=== PATIENT | male | born 1945 | race Caucasian/White ===

== ENCOUNTER 2024-01-28 22:37 | Emergency (ER) | payer MEDICARE, OTHER ==
[2024-01-28 22:45] VITALS: TEMP 97.9
[2024-01-28 23:05] LABS: Appearance,Urine Bloody (Clear); Color,Urine Red
[2024-01-28 23:18] LABS: RBC,Urine >182 /hpf (0-5)
--- NOTE | 2024-01-28 23:48 | ED ---
Male Urogenital HPI - General Chief complaint: Urogenital Stated complaint: Catheter Malfunction Time Seen by Provider: 01/28/24 22:40 Source: patient Mode of arrival: EMS Limitations: no limitations - History of Present Illness Initial comments: 78-year-old male presents to the emergency department with hematuria. Patient states that he has had the catheter in for an extended period of time. He did not realize that the catheter had to be changed out. He did have a catheter changed on . He has not had any issues until today. He took a nap at home and when he woke up he noticed that there was blood in the catheter bag. He is currently on antibiotics. He denies any flank or suprapubic pain. No fevers. Patient takes Plavix. No other alleviating, precipitating or modifying factors - Related Data Previous Rx's Medication Instructions Recorded Ciprofloxacin HCl [Cipro] 500 mg PO Q12HR #14 tablet 01/29/24 Allergies Allergy/AdvReac Type Severity Reaction Status Date / Time No Known Allergies Allergy Verified 01/29/24 01:35 Review of Systems ROS Statement: Those systems with pertinent positive or pertinent negative responses have been documented in the HPI. ROS Other: All systems not noted in ROS Statement are negative. Past Medical History Past Medical History: Heart Failure, CVA/TIA, Hyperlipidemia, Hypertension Past Surgical History: Heart Catheterization With Stent, Hernia Repair Past Psychological History: Anxiety Smoking Status: Never smoker Past Alcohol Use History: None Reported Past Drug Use History: None Reported General Exam Limitations: no limitations General appearance: alert, in no apparent distress Head exam: Present: atraumatic, normocephalic, normal inspection Eye exam: Present: normal appearance, PERRL, EOMI. Absent: scleral icterus, conjunctival injection, periorbital swelling ENT exam: Present: normal exam, mucous membranes moist Neck exam: Present: normal inspection. Absent: tenderness, meningismus, lymphadenopathy Respiratory exam: Present: normal lung sounds bilaterally. Absent: respiratory distress, wheezes, rales, rhonchi, stridor Cardiovascular Exam: Present: regular rate, normal rhythm, normal heart sounds. Absent: systolic murmur, diastolic murmur, rubs, gallop, clicks GI/Abdominal exam: Present: soft, normal bowel sounds. Absent: distended, tenderness, guarding, rebound, rigid exam: Present: other (Catheter back in place with bloody urine) Extremities exam: Present: normal inspection, full ROM, normal capillary refill. Absent: tenderness, pedal edema, joint swelling, calf tenderness Back exam: Present: normal inspection Neurological exam: Present: alert, oriented X3, CN II-XII intact Psychiatric exam: Present: normal affect, normal mood Skin exam: Present: warm, dry, intact, normal color. Absent: rash Course Vital Signs 01/28/24 01/29/24 22:38 01:01 Temperature 97.9 F Pulse Rate 92 88 Respiratory 18 16 Rate Blood Pressure 161/80 155/79 O2 Sat by Pulse 97 97 Oximetry Medical Decision Making - Medical Decision Making Was pt. sent in by a medical professional or institution (, [facility], CARTRIDGE LOADER, urgent care, hospital, or alf...) When possible be specific @ -No Did you speak to anyone other than the patient for history (EMS, parent, family, police, friend...)? What history was obtained from this source @ -Spoke with EMS for history Did you review nursing and triage notes (agree or disagree)? Why? @ -I reviewed and agree with nursing and triage notes Were old charts reviewed (outside hosp., previous admission, EMS record, old EKG, old radiological studies, urgent care reports/EKG's, alf records)? Report findings @ -No old charts were reviewed Differential Diagnosis (chest pain, altered mental status, abdominal pain women, abdominal pain men, vaginal bleeding, weakness, fever, dyspnea, syncope, headache, dizziness, GI bleed, back pain, seizure, CVA, palpatations, mental health, musculoskeletal)? @ -Acute UTI, acute hematuria, ureterolithiasis, Sarkar trauma EKG interpreted by me (3pts min.). @ -Not done X-rays interpreted by me (1pt min.). @ -None done CT interpreted by me (1pt min.). @ -None done U/S interpreted by me (1pt. min.). @ -None done What testing was considered but not performed or refused? (CT, X-rays, U/S, labs)? Why? @ -None What meds were considered but not given or refused? Why? @ -None Did you discuss the management of the patient with other professionals (professionals i.e. , MALVIN, CARTRIDGE LOADER, lab, RT, psych nurse, nephrology social worker, professor of english, teacher, corporation officer, bottle caser)? Give summary @ -No Was smoking cessation discussed for >3mins.? @ -No Was critical care preformed (if so, how long)? @ -No Were there social determinants of health that impacted care today? How? (Homelessness, low income, unemployed, alcoholism, drug addiction, transportation, low edu. Level, literacy, decrease access to med. care, [facility], rehab)? @ -No Was there de-escalation of care discussed even if they declined (Discuss DNR or withdrawal of care, Hospice)? DNR status @ -No What co-morbidities impacted this encounter? (DM, HTN, Smoking, COPD, CAD, Cancer, CVA, ARF, Chemo, Hep., AIDS, mental health diagnosis, sleep apnea, morbid obesity)? @ -Urinary retention Was patient admitted / discharged? Hospital course, mention meds given and route, prescriptions, significant lab abnormalities, going to OR and other pertinent info. @ -Upon arrival patient seen and evaluated in room 31. Thorough history and physical exam was performed. We do send a urine sample which demonstrates gross blood. No bacteria is identified however I will change the patient's antibiotic in the event that due to the significant amount of blood, the bacteria is not being identified. Patient's Sarkar bag is flushed to a light pink color. He will be discharged home at this time. Instructed to return should his urination become darker in coloration or he clots off. Patient understood this. Given written and verbal discharge instructions discharged home in stable condition Undiagnosed new problem with uncertain prognosis? @ -No Drug Therapy requiring intensive monitoring for toxicity (Heparin, Nitro, Insulin, Cardizem)? @ -No Were any procedures done? @ -No Diagnosis/symptom? @ -Acute hematuria, history of chronic Sarkar Acute, or Chronic, or Acute on Chronic? @Acute Uncomplicated (without systemic symptoms) or Complicated (systemic symptoms)? @ -Complicated Side effects of treatment? @ -No Exacerbation, Progression, or Severe Exacerbation? @ -No Poses a threat to life or bodily function? How? (Chest pain, [place], [place], pneumonia, PE, COPD, DKA, ARF, appy, cholecystitis, CVA, Diverticulitis, Homicidal, Suicidal, threat to staff... and all critical care pts) @ -No - Lab Data Lab Results 06/09/24 Range/Units 22:53 Urine Color Red Urine Appearance Bloody (Clear) Urine RBC >182 H (0-5) /hpf Disposition Clinical Impression: Hematuria Disposition: HOME SELF-CARE Condition: Stable Instructions (If sedation given, give patient instructions): Hematuria (ED) Additional Instructions: Call up to the ER with the list of your medications. I will change your ant ibiotic. If the bleeding gets darker again and the catheter clots off, you will have to return to the emergency department to get flushed again. Follow-up with your urologist as they will need to do a scope of your bladder Prescriptions: Ciprofloxacin HCl [Cipro] 500 mg PO Q12HR #14 tablet Is patient prescribed a controlled substance at d/c from ED?: No Referrals: None,Stated [Primary Care Provider] - 1-2 days Kingston Powers MD [STAFF PHYSICIAN] - 1-2 days Time of Disposition: 00:57
[2024-01-29 01:03] VITALS: BP 155/79; PULSE 88; RESP 16
== END 2024-01-29 01:01 | disposition home or self-care (01) ==
LOC: EC 22:37
DX: R31.9 Hematuria, unspecified (principal); R33.9 Retention of urine, unspecified; Z86.73 Personal history of transient ischemic attack (TIA), and cerebral infarction without residual deficits
CPT/HCPCS: 81001; 99283

== ENCOUNTER → 2024-04-16 | Outpatient (CLI) | payer OTHER ==
[2024-04-16 15:13] LABS: HCT 40.6 % (39.6-50.0); HGB 13.5 g/dL (13.0-17.0); MCH 30.4 pg (27.0-32.0); MCHC 33.3 g/dL (32.0-37.0); MCV 91.4 FL (80.0-97.0); Mean Platelet Volume 10.1 FL (9.5-12.2); NRBC Per 100 WBC 0 X 10*3/uL (0.00-0.01); Platelet Count 198 X 10*3/uL (140-440); RBC 4.44 X 10*6/uL (4.40-5.60); RDW 13.5 % (11.5-14.5); WBC 6.41 X 10*3/uL (4.50-10.00)
[2024-04-16 22:34] LABS: NT-Pro-B-Type Natriuretic Pept 306 pg/mL (0-450)
[2024-04-16 22:42] LABS: Blood Urea Nitrogen 21.8 mg/dL (9.0-27.0); Chol/HDL Ratio 3.45 Ratio; Glucose 137 mg/dL (70-110); LDL Cholesterol,Calculated 45.4 mg/dL (0.0-131.0)
[2024-04-16 22:43] LABS: ALT 28 U/L (10-49); AST 29 U/L (14-35); Albumin 4.1 g/dL (3.8-4.9); Albumin/Globulin Ratio 1.86 Ratio (1.60-3.17); Alkaline Phosphatase 141 U/L (41-126); Calcium 8.9 mg/dL (8.7-10.3); Chloride 104 mmol/L (96-109); Globulin 2.2 g/dL (1.6-3.3); Potassium 4.1 mmol/L (3.5-5.5); Sodium 138 mmol/L (135-145); Total Bilirubin 0.4 mg/dL (0.3-1.2); Total Protein 6.3 g/dL (6.2-8.2)
== END | disposition home or self-care (01) ==
LOC: LABWHC1 11:09
PROVIDERS: ATTEND Student in an Organized Health Care Education/Training Program
DX: Z13.6 Encounter for screening for cardiovascular disorders (principal); E11.9 Type 2 diabetes mellitus without complications; D72.9 Disorder of white blood cells, unspecified; I50.9 Heart failure, unspecified; E78.5 Hyperlipidemia, unspecified; E03.9 Hypothyroidism, unspecified; R79.89 Other specified abnormal findings of blood chemistry
CPT/HCPCS: 36415; 80053; 80061; 83036; 83880; 84443; 85027

== ENCOUNTER 2024-06-19 21:03 | Emergency (ER) | payer OTHER ==
[2024-06-19] MEDS ORDERED: ARTIFICIAL TEARS-HYPROMELLOSE DROPS 15 ML BTL RIGHT EYE PRN (21:15)
--- NOTE | 2024-06-19 21:19 | ED ---
General Adult HPI - General Chief complaint: Neuro Symptoms/Deficit Stated complaint: facial drooping Time Seen by Provider: 06/19/24 21:10 Source: patient Mode of arrival: ambulatory Limitations: no limitations - History of Present Illness Initial comments: Dictation was produced using [employer] dictation software. please excuse any grammatical, word or spelling errors. Chief Complaint: 78-year-old male presents to the emergency department for facial weakness History of Present Illness: Patient is a 78-year-old male he has multiple comorbidities he is accompanied by daughter. Patient started to have facial droop and blurry vision starting at noon. Patient has history of CVA and TIA. Denies any extremity issues. Patient states that he is having difficulty shutting his right eye. The ROS documented in this emergency department record has been reviewed and confirmed by me. Those systems with pertinent positive or negative responses have been documented in the HPI. All other systems are other negative and/or noncontributory. - Related Data Previous Rx's Medication Instructions Recorded Ciprofloxacin HCl [Cipro] 500 mg PO Q12HR #14 tablet 01/29/24 Artificial Tears-Hypromellose 1 drops LEFT EYE TID #10 ml 06/19/24 [Artificial Tear Drops] Erythromycin Ophth Oint [Romycin 1 applic LEFT EYE DAILY #1 gm 06/19/24 Ophth Oint] predniSONE [Deltasone] 80 mg PO DAILY #21 tab 06/19/24 valACYclovir HCL [Valtrex] 1,000 mg PO DAILY 7 Days #7 tablet 06/19/24 Allergies Allergy/AdvReac Type Severity Reaction Status Date / Time No Known Allergies Allergy Verified 06/19/24 21:07 Review of Systems ROS Statement: Those systems with pertinent positive or pertinent negative responses have been documented in the HPI. ROS Other: All systems not noted in ROS Statement are negative. Past Medical History Past Medical History: Heart Failure, CVA/TIA, Hyperlipidemia, Hypertension Past Surgical History: Heart Catheterization With Stent, Hernia Repair Past Psychological History: Anxiety Smoking Status: Never smoker Past Alcohol Use History: None Reported Past Drug Use History: None Reported General Exam - General Exam Comments Initial Comments: PHYSICAL EXAM: General Impression: Alert and oriented x3, not in acute distress HEENT: Normocephalic atraumatic, extra-ocular movements intact, pupils equal and reactive to light bilaterally, mucous membranes moist. Cardiovascular: Heart regular rate and rhythm Chest: Able to complete full sentences, no retractions, no tachypnea Abdomen: abdomen soft, non-tender, non-distended, no organomegaly Musculoskeletal: Pulses present and equal in all extremities, no peripheral edema Motor: no focal deficits noted Neurological: Right upper and right lower facial weakness, no extremity deficits Skin: Intact with no visualized rashes Psych: Normal affect and mood Limitations: no limitations Course Vital Signs 06/19/24 06/19/24 21:06 21:16 Temperature 98 F 98.0 F Pulse Rate 88 89 Respiratory 18 17 Rate Blood Pressure 161/90 165/93 O2 Sat by Pulse 96 95 Oximetry Medical Decision Making - Medical Decision Making Was pt. sent in by a medical professional or institution (, PA, STABLE HELPER, urgent care, hospital, or jail...) When possible be specific @ -No Did you speak to anyone other than the patient for history (EMS, parent, family, police, friend...)? What history was obtained from this source @ -No Did you review nursing and triage notes (agree or disagree)? Why? @ -I reviewed and agree with nursing and triage notes Were old charts reviewed (outside hosp., previous admission, EMS record, old EKG, old radiological studies, urgent care reports/EKG's, jail records)? Report findings @ -No old charts were reviewed Differential Diagnosis (chest pain, altered mental status, abdominal pain women, abdominal pain men, vaginal bleeding, musculoskeletal, weakness, fever, dyspnea, syncope, headache, dizziness, GI bleed, back pain, seizure, CVA, palpatations, mental health)? @ - Differential CVA: Ischemic stroke, hemorrhagic stroke, brain tumor, atypical migraine, Wernicke's encephalopathy, seizure, multiple sclerosis, meningitis, encephalitis, hypoglycemia, Guillain-Francisco, electrolytes disturbance, myasthenia gravis.... This is not meant to be an all-inclusive list EKG interpreted by me (3pts min.). @ -None done X-rays interpreted by me (1pt min.). @ -None done CT interpreted by me (1pt min.). @ -CT brain is nonacute U/S interpreted by me (1pt. min.). @ -None done What testing was considered but not performed or refused? (CT, X-rays, U/S, labs)? Why? @ -None What meds were considered but not given or refused? Why? @ -None Was smoking cessation discussed for >3mins.? @ -No Were there social determinants of health that impacted care today? How? (Homelessness, low income, unemployed, alcoholism, drug addiction, transportation, low edu. Level, literacy, decrease access to med. care, skilled nursing, rehab)? @ -No Was there de-escalation of care discussed even if they declined (Discuss DNR or withdrawal of care, Hospice)? DNR status @ -No What co-morbidities impacted this encounter? (DM, HTN, Smoking, COPD, CAD, Cancer, CVA, ARF, Chemo, Hep., AIDS, mental health diagnosis, sleep apnea, morb id obesity)? @ -History of CVA Was patient admitted / discharged? Hospital course, mention meds given and route, prescriptions, significant lab abnormalities, going to OR and other pertinent info. @ -78-year-old male concerned he has a stroke. Came in for right facial weakness. Vital signs upon arrival are within acceptable limits. 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 Laboratory evaluation obtained. CT brain is unremarkable. Patient given Deng palsy medications advised follow-up with primary care doctor and ophthalmology. Did you discuss the management of the patient with other professionals (professionals i.e. , PA, STABLE HELPER, lab, RT, psych nurse, social services analyst, blood donor unit assistant, teacher, corporate banking officer, case management coordinator)? Give summary @ -No Was critical care preformed (if so, how long)? @ -No Undiagnosed new problem with uncertain prognosis? @ -No Drug Therapy requiring intensive monitoring for toxicity (Heparin, Nitro, Insulin, Cardizem)? @ -No Were any procedures done? @ -No Diagnosis/symptom? Acute, or Chronic, or Acute on Chronic? Uncomplicated (without systemic symptoms) or Complicated (systemic symptoms)? @ -Deng Palsy Side effects of treatment? @ -No Exacerbation, Progression, or Severe Exacerbation? @ -No Poses a threat to life or bodily function? How? (Chest pain, [place], [place], pneumonia, PE, COPD, DKA, ARF, appy, cholecystitis, CVA, Diverticulitis, Homicidal, Suicidal, threat to staff... and all critical care pts) @ -yes - Lab Data Result diagrams: 06/19/24 21:15 06/19/24 21:15 Lab Results 06/19/24 06/19/24 Range/Units 21:15 21:15 WBC 7.4 (3.8-10.6) k/uL RBC 4.60 (4.30-5.90) m/uL Hgb 14.1 (13.0-17.5) gm/dL Hct 42.8 (39.0-53.0) % MCV 93.2 (80.0-100.0) fL MCH 30.8 (25.0-35.0) pg MCHC 33.0 (31.0-37.0) g/dL RDW 13.6 (11.5-15.5) % Plt Count 219 (150-450) k/uL MPV 7.4 Neutrophils % 62 % Lymphocytes % 24 % Monocytes % 7 % Eosinophils % 4 % Basophils % 0 % Neutrophils # 4.6 (1.3-7.7) k/uL Lymphocytes # 1.8 (1.0-4.8) k/uL Monocytes # 0.5 (0-1.0) k/uL Eosinophils # 0.3 (0-0.7) k/uL Basophils # 0.0 (0-0.2) k/uL Sodium 137 (137-145) mmol/L Potassium 4.2 (3.5-5.1) mmol/L Chloride 107 (98-107) mmol/L Carbon Dioxide 22 (22-30) mmol/L Anion Gap 8 mmol/L BUN 29 H (9-20) mg/dL Creatinine 0.85 (0.66-1.25) mg/dL Est GFR (CKD-EPI)AfAm >90 (>60 ml/min/1.73 sqM) Est GFR (CKD-EPI)NonAf 83 (>60 ml/min/1.73 sqM) Glucose 109 H (74-99) mg/dL Calcium 9.0 (8.4-10.2) mg/dL Disposition Clinical Impression: Deng palsy Disposition: HOME SELF-CARE Condition: Fair Instructions (If sedation given, give patient instructions): Deng Palsy (ED) Additional Instructions: Cornea eye protection Artificial tears qhr while patient is awake Ophthalmic ointment at night Eye should be taped shut at night Protective glasses or goggles Prescriptions: Artificial Tears-Hypromellose [Artificial Tear Drops] 1 drops LEFT EYE TID #10 ml predniSONE [Deltasone] 80 mg PO DAILY #21 tab Erythromycin Ophth Oint [Romycin Ophth Oint] 1 applic LEFT EYE DAILY #1 gm valACYclovir HCL [Valtrex] 1,000 mg PO DAILY 7 Days #7 tablet Is patient prescribed a controlled substance at d/c from ED?: No Referrals: [facility],Clinic [Primary Care Provider] - 1-2 days Brendan Infante MD [STAFF PHYSICIAN] - 1-2 days Time of Disposition: 21:58
[2024-06-19 21:20] VITALS: RESP 17
[2024-06-19 21:40] LABS: Basophils % (A) 0 %; Eosinophils # (A) 0.3 k/uL (0-0.7); Eosinophils % (A) 4 %; HCT 42.8 % (39.0-53.0); HGB 14.1 gm/dL (13.0-17.5); Lymphocytes # (A) 1.8 k/uL (1.0-4.8); Lymphocytes % (A) 24 %; MCH 30.8 pg (25.0-35.0); MCV 93.2 fL (80.0-100.0); Mean Platelet Volume 7.4; Monocytes # (A) 0.5 k/uL (0-1.0); Monocytes % (A) 7 %; Neutrophils # (A) 4.6 k/uL (1.3-7.7); Neutrophils % (A) 62 %; Platelet Count 219 k/uL (150-450); RDW 13.6 % (11.5-15.5); WBC 7.4 k/uL (3.8-10.6)
[2024-06-19] MEDS: ERYTHROMYCIN 5 MG/GM OPHTH OINT 3.5 GM TUBE RIGHT EYE SCH (21:43)
--- NOTE | 2024-06-19 21:47 | CT ---
EXAMINATION TYPE: CT brain wo con DATE OF EXAM: 06/19/2024 COMPARISON: INDICATION: Rt side facial droop. DLP: 1256.4 mGycm, Automated exposure control for dose reduction was used. CONTRAST: None CT of the brain is performed utilizing 3 mm thick sections through the posterior fossa and 3 mm thick sections through the remaining calvarium. Study is performed within 24 hours of arrival to the hosp ital. No abnormal hyperdensity is present to suggest an acute intracranial hemorrhage. No mass lesion is evident. No acute infarcts are evident. There appears to be prominence of the basilar artery through its visua lized course. Some dolichoectasia may be present. Vascular calcification is noted in the distal inter nal carotid arteries and within the basilar artery. Ventricles and sulci are appropriate for the patient age. There is mucosal thickening within the left maxillary sinus. Left septal deviation is noted. Paranasa l sinuses and mastoid air cells are otherwise clear. IMPRESSION: 1. No acute intracranial process. Follow up MRI can be performed as clinically indicated. 2. 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 [facility], Workstation: [facility], 06/19/2024 9:45 PM
[2024-06-19 21:50] LABS: African American GFR (CKD) >90 (>60 ml/min/1.73 sqM); Anion Gap 8 mmol/L; Blood Urea Nitrogen 29 mg/dL (9-20); Carbon Dioxide 22 mmol/L (22-30); Chloride 107 mmol/L (98-107); Glucose 109 mg/dL (74-99); Non-African American GFR(CKD) 83 (>60 ml/min/1.73 sqM); Potassium 4.2 mmol/L (3.5-5.1); Sodium 137 mmol/L (137-145)
[2024-06-19 22:10] VITALS: BP 144/79; PULSE 80; TEMP 98.1
== END 2024-06-19 22:10 | disposition home or self-care (01) ==
LOC: EC 21:03
DX: G51.0 Bell's palsy (principal)
CPT/HCPCS: 36415; 70450; 80048; 85025; 99285

== ENCOUNTER 2024-06-23 10:28 | Emergency (ER) | payer OTHER ==
[2024-06-23 11:17] LABS: Appearance,Urine Cloudy (Clear); Bacteria,Urine Many /hpf; Bilirubin,Urine Negative (Negative); Blood,Urine Moderate (Negative); Color,Urine Colorless; Glucose,Urine (UA) 3+ (Negative); Ketones,Urine Negative (Negative); Leukocyte Esterase,Urine Large (Negative); Nitrite,Urine Positive (Negative); PH, Urine 5.5 (5.0-8.0); Protein,Urine Negative (Negative); RBC,Urine 35 /hpf (0-5); Urobilinogen,Urine <2.0 mg/dL (<2.0); WBC,Urine 120 /hpf (0-5)
--- NOTE | 2024-06-23 11:26 | ED ---
Male Urogenital HPI - General Chief complaint: Urogenital Stated complaint: Chronic valdez not draining Time Seen by Provider: 06/23/24 10:32 Source: patient, RN notes reviewed Mode of arrival: ambulatory Limitations: no limitations - History of Present Illness Initial comments: 78-year-old male presents emerged [facility] complaining of Valdez catheter not d raining. He states that he had Valdez catheter for several months he states that this 1 has been for the 1 month. He states he noticed it was not draining as usual. Patient has a follow-up appointment July with urology. - Related Data Previous Rx's Medication Instructions Recorded Ciprofloxacin HCl [Cipro] 500 mg PO Q12HR #14 tablet 01/29/24 Artificial Tears-Hypromellose 1 drops LEFT EYE TID #10 ml 06/19/24 [Artificial Tear Drops] Erythromycin Ophth Oint [Romycin 1 applic LEFT EYE DAILY #1 gm 06/19/24 Ophth Oint] predniSONE [Deltasone] 80 mg PO DAILY #21 tab 06/19/24 valACYclovir HCL [Valtrex] 1,000 mg PO DAILY 7 Days #7 tablet 06/19/24 Ciprofloxacin HCl [Cipro] 500 mg PO Q12HR #14 tablet 06/23/24 Allergies Allergy/AdvReac Type Severity Reaction Status Date / Time No Known Allergies Allergy Verified 06/23/24 10:32 Review of Systems ROS Statement: Those systems with pertinent positive or pertinent negative responses have been documented in the HPI. ROS Other: All systems not noted in ROS Statement are negative. Past Medical History Past Medical History: Heart Failure, CVA/TIA, Hyperlipidemia, Hypertension Past Surgical History: Heart Catheterization With Stent, Hernia Repair Past Psychological History: Anxiety Smoking Status: Never smoker Past Alcohol Use History: None Reported Past Drug Use History: None Reported General Exam Limitations: no limitations General appearance: alert, in no apparent distress Head exam: Present: atraumatic, normocephalic, normal inspection Respiratory exam: Present: normal lung sounds bilaterally. Absent: respiratory distress, wheezes, rales, rhonchi, stridor Cardiovascular Exam: Present: regular rate, normal rhythm, normal heart sounds. Absent: systolic murmur, diastolic murmur, rubs, gallop, clicks GI/Abdominal exam: Present: soft, normal bowel sounds. Absent: distended, tenderness, guarding, rebound, rigid Back exam: Absent: CVA tenderness (R), CVA tenderness (L) Course Vital Signs 06/23/24 10:29 Temperature 97.2 F L Pulse Rate 95 Respiratory 16 Rate Blood Pressure 195/96 O2 Sat by Pulse 97 Oximetry Medical Decision Making - Medical Decision Making Was pt. sent in by a medical professional or institution (MALVIN Olivares, LANCE CREWMEMBER/MLRS SERGEANT, urgent care, hospital, or residential...) When possible be specific @ -No Did you speak to anyone other than the patient for history (EMS, parent, family, police, friend...)? What history was obtained from this source @ -No Did you review nursing and triage notes (agree or disagree)? Why? @ -I reviewed and agree with nursing and triage notes Were old charts reviewed (outside hosp., previous admission, EMS record, old EKG, old radiological studies, urgent care reports/EKG's, residential records)? Report findings @ -No old charts were reviewed Differential Diagnosis (chest pain, altered mental status, abdominal pain women, abdominal pain men, vaginal bleeding, weakness, fever, dyspnea, syncope, headache, dizziness, GI bleed, back pain, seizure, CVA, palpatations, mental health, musculoskeletal)? @ -Urinary retention, Valdez catheter complication, UTI EKG interpreted by me (3pts min.). @ -None X-rays interpreted by me (1pt min.). @ -None done CT interpreted by me (1pt min.). @ -None done U/S interpreted by me (1pt. min.). @ -None done What testing was considered but not performed or refused? (CT, X-rays, U/S, labs)? Why? @ -None What meds were considered but not given or refused? Why? @ -None Did you discuss the management of the patient with other professionals (professionals i.e. MALVIN Olivares, LANCE CREWMEMBER/MLRS SERGEANT, lab, RT, psych nurse, social security assessor, miner placer, teacher, fisheries technical officer, piano case and bench assembler)? Give summary @ -No Was smoking cessation discussed for >3mins.? @ -No Was critical care preformed (if so, how long)? @ -No Were there social determinants of health that impacted care today? How? (Homelessness, low income, unemployed, alcoholism, drug addiction, transportation, low edu. Level, literacy, decrease access to med. care, group home, rehab)? @ -No Was there de-escalation of care discussed even if they declined (Discuss DNR or withdrawal of care, Hospice)? DNR status @ -No What co-morbidities impacted this encounter? (DM, HTN, Smoking, COPD, CAD, Cancer, CVA, ARF, Chemo, Hep., AIDS, mental health diagnosis, sleep apnea, morbid obesity)? @ -None Was patient admitted / discharged? Hospital course, mention meds given and route, prescriptions, significant lab abnormalities, going to OR and other pertinent info. @ -Discharge patient had Valdez catheter exchange. Patient does have moderate amount of bacteria concerning for UTI. Patient will be placed on antibiotics. Undiagnosed new problem with uncertain prognosis? @ -No Drug Therapy requiring intensive monitoring for toxicity (Heparin, Nitro, Insulin, Cardizem)? @ -No Were any procedures done? @ -No Diagnosis/symptom? @ -Urinary retention, Valdez catheter complication, UTI Acute, or Chronic, or Acute on Chronic? @ -Acute Uncomplicated (without systemic symptoms) or Complicated (systemic symptoms)? @ -Uncomplicated Side effects of treatment? @ -No Exacerbation, Progression, or Severe Exacerbation? @ -No Poses a threat to life or bodily function? How? (Chest pain, [place], [place], pneumonia, PE, COPD, DKA, ARF, appy, cholecystitis, CVA, Diverticulitis, Homicidal, Suicidal, threat to staff... and all critical care pts) @ -No - Lab Data Lab Results 06/23/24 Range/Units 10:52 Urine Color Colorless Urine Appearance Cloudy (Clear) Urine pH 5.5 (5.0-8.0) Ur Specific [place] 1.020 (1.001-1.035) Urine Protein Negative (Negative) Urine Glucose (UA) 3+ H (Negative) Urine Ketones Negative (Negative) Urine Blood Moderate H (Negative) Urine Nitrite Positive (Negative) Urine Bilirubin Negative (Negative) Urine Urobilinogen <2.0 (<2.0) mg/dL Ur Leukocyte Esterase Large H (Negative) Urine RBC 35 H (0-5) /hpf Urine WBC 120 H (0-5) /hpf Urine Bacteria Many H (None) /hpf Disposition Clinical Impression: UTI (urinary tract infection), Complication of Valdez catheter, Urinary retention Disposition: HOME SELF-CARE Condition: Stable Instructions (If sedation given, give patient instructions): Urinary Tract Infection in Men (ED) Additional Instructions: Please return to the Emergency Department if symptoms worsen or any other concerns. Prescriptions: Ciprofloxacin HCl [Cipro] 500 mg PO Q12HR #14 tablet Is patient prescribed a controlled substance at d/c from ED?: No Referrals: [facility],Clinic [Primary Care Provider] - 1-2 days Time of Disposition: 11:26
[2024-06-23 11:38] VITALS: BP 170/87; PULSE 68; RESP 18; TEMP 97.8
== END 2024-06-23 11:38 | disposition home or self-care (01) ==
LOC: EC 10:28
DX: N39.0 Urinary tract infection, site not specified (principal); T83.091A Other mechanical complication of indwelling urethral catheter, initial encounter; Z86.73 Personal history of transient ischemic attack (TIA), and cerebral infarction without residual deficits
CPT/HCPCS: 51702; 81001; 87077; 87086; 87186; 99283

== ENCOUNTER 2024-08-14 20:44 | Emergency (ER) | payer OTHER ==
--- NOTE | 2024-08-14 21:59 | ED ---
Male Urogenital HPI - General Chief complaint: Urogenital Stated complaint: Catheter Drainage Issues Time Seen by Provider: 08/14/24 21:00 Source: patient, RN notes reviewed Mode of arrival: ambulatory Limitations: no limitations - History of Present Illness Initial comments: This is an 79-year-old male with history of urinary retention presenting for F oley catheter not emptying since 1730 today. Patient states he has had a chronic Sarkar catheter for the past 6 months. States he has only had a change twice over that time, the last being at least 1 month ago. Endorses some suprapubic pressure. Denies fever, chills, mid back pain, dysuria, hematuria or other urinary symptoms. MD Complaint: other Onset/Timin -: hour(s) Location: abdomen Radiation: none indwelling catheter Reports: denies other symptoms - Related Data Previous Rx's Medication Instructions Recorded Ciprofloxacin HCl [Cipro] 500 mg PO Q12HR #14 tablet 01/29/24 Artificial Tears-Hypromellose 1 drops LEFT EYE TID #10 ml 06/19/24 [Artificial Tear Drops] Erythromycin Ophth Oint [Romycin 1 applic LEFT EYE DAILY #1 gm 06/19/24 Ophth Oint] predniSONE [Deltasone] 80 mg PO DAILY #21 tab 06/19/24 valACYclovir HCL [Valtrex] 1,000 mg PO DAILY 7 Days #7 tablet 06/19/24 Ciprofloxacin HCl [Cipro] 500 mg PO Q12HR #14 tablet 06/23/24 Cephalexin [Keflex] 500 mg PO Q6HR 10 Days #40 cap 08/14/24 Allergies Allergy/AdvReac Type Severity Reaction Status Date / Time No Known Allergies Allergy Verified 08/14/24 20:49 Review of Systems ROS Statement: Those systems with pertinent positive or pertinent negative responses have been documented in the HPI. ROS Other: All systems not noted in ROS Statement are negative. Past Medical History Past Medical History: Heart Failure, CVA/TIA, Hyperlipidemia, Hypertension Past Surgical History: Heart Catheterization With Stent, Hernia Repair Past Psychological History: Anxiety Smoking Status: Never smoker Past Alcohol Use History: None Reported Past Drug Use History: None Reported General Exam Limitations: no limitations General appearance: alert, in no apparent distress Head exam: Present: atraumatic, normocephalic, normal inspection Eye exam: Present: normal appearance, PERRL, EOMI. Absent: scleral icterus, conjunctival injection, periorbital swelling ENT exam: Present: normal exam, mucous membranes moist Neck exam: Present: normal inspection. Absent: tenderness, meningismus, lymphadenopathy Respiratory exam: Present: normal lung sounds bilaterally. Absent: respiratory distress, wheezes, rales, rhonchi, stridor Cardiovascular Exam: Present: regular rate, normal rhythm, normal heart sounds. Absent: systolic murmur, diastolic murmur, rubs, gallop, clicks GI/Abdominal exam: Present: soft, tenderness (Suprapubic TTP), normal bowel sounds. Absent: distended, guarding, rebound, rigid Extremities exam: Present: normal inspection, full ROM, normal capillary refill. Absent: tenderness, pedal edema, joint swelling, calf tenderness Back exam: Present: normal inspection Neurological exam: Present: alert, oriented X3, CN II-XII intact Psychiatric exam: Present: normal affect, normal mood Skin exam: Present: warm, dry, intact, normal color. Absent: rash Course Vital Signs 08/14/24 20:47 Temperature 97.4 F L Pulse Rate 83 Respiratory 16 Rate Blood Pressure 153/89 O2 Sat by Pulse 96 Oximetry Medical Decision Making - Medical Decision Making Was pt. sent in by a medical professional or institution (, PA, DRUG DEPARTMENT WORKER, urgent care, hospital, or senior living...) When possible be specific @ -[No] Did you speak to anyone other than the patient for history (EMS, parent, family, police, friend...)? What history was obtained from this source @ -[No] Did you review nursing and triage notes (agree or disagree)? Why? @ -[I reviewed and agree with nursing and triage notes] Were old charts reviewed (outside hosp., previous admission, EMS record, old EKG, old radiological studies, urgent care reports/EKG's, senior living records)? Report findings @ -[No old charts were reviewed] Differential Diagnosis (chest pain, altered mental status, abdominal pain women, abdominal pain men, vaginal bleeding, weakness, fever, dyspnea, syncope, headache, dizziness, GI bleed, back pain, seizure, CVA, palpatations, mental health, musculoskeletal)? @ -Differential Abdominal Pain Men: Appendicitis, cholecystitis, diverticulosis, ischemic bowel, pancreatitis, hepatitis, UTI, gastroenteritis, AAA, incarcerated hernia, bowel obstruction, constipation, inflammatory bowel, hepatitis, peptic ulcer disease, splenic infarction, perforated viscus, testicular torsion, this is not meant to be an al l-inclusive list EKG interpreted by me (3pts min.). @ -Not done X-rays interpreted by me (1pt min.). @ -[None done] CT interpreted by me (1pt min.). @ -[None done] U/S interpreted by me (1pt. min.). @ -[None done] What testing was considered but not performed or refused? (CT, X-rays, U/S, labs)? Why? @ -[None] What meds were considered but not given or refused? Why? @ -[None] Did you discuss the management of the patient with other professionals (professionals i.e. , PA, DRUG DEPARTMENT WORKER, lab, RT, psych nurse, social media designer, knitted cloth examiner, teacher, donor relations officer, family service caseworker)? Give summary @ -[No] Was smoking cessation discussed for >3mins.? @ -[No] Was critical care preformed (if so, how long)? @ -[No] Were there social determinants of health that impacted care today? How? (Homelessness, low income, unemployed, alcoholism, drug addiction, transportation, low edu. Level, literacy, decrease access to med. care, fci, rehab)? @ -[No] Was there de-escalation of care discussed even if they declined (Discuss DNR or withdrawal of care, Hospice)? DNR status @ -[No] What co-morbidities impacted this encounter? (DM, HTN, Smoking, COPD, CAD, Cancer, CVA, ARF, Chemo, Hep., AIDS, mental health diagnosis, sleep apnea, morbid obesity)? @ -[None] Was patient admitted / discharged? Hospital course, mention meds given and route, prescriptions, significant lab abnormalities, going to OR and other pertinent info. @ -Bladder scan performed showing over 900 mL in bladder. Old Sarkar removed and replaced with new Sarkar catheter. UA performed. Undiagnosed new problem with uncertain prognosis? @ -[No] Drug Therapy requiring intensive monitoring for toxicity (Heparin, Nitro, Insulin, Cardizem)? @ -[No] Were any procedures done? @ -[No] Diagnosis/symptom? @ -Obstructed IUC Acute, or Chronic, or Acute on Chronic? @ -Acute Uncomplicated (without systemic symptoms) or Complicated (systemic symptoms)? @ -Uncomplicated Side effects of treatment? @ -[No] Exacerbation, Progression, or Severe Exacerbation? @ -[No] Poses a threat to life or bodily function? How? (Chest pain, [place], [place], pneumonia, PE, COPD, DKA, ARF, appy, cholecystitis, CVA, Diverticulitis, Homicidal, Suicidal, threat to staff... and all critical care pts) @ -[No] - Lab Data Lab Results 08/14/24 Range/Units 21:08 Urine Color Light Yellow Urine Appearance Cloudy (Clear) Urine pH 6.5 (5.0-8.0) Ur Specific [place] 1.022 (1.001-1.035) Urine Protein 1+ H (Negative) Urine Glucose (UA) Negative (Negative) Urine Ketones Negative (Negative) Urine Blood Large H (Negative) Urine Nitrite Negative (Negative) Urine Bilirubin Negative (Negative) Urine Urobilinogen <2.0 (<2.0) mg/dL Ur Leukocyte Esterase Large H (Negative) Urine RBC 74 H (0-5) /hpf Urine WBC >182 H (0-5) /hpf Urine WBC Clumps Rare H (None) /hpf Ur Squamous Epith Cells 1 (0-4) /hpf Amorphous Sediment Rare H (None) /hpf Urine Bacteria Many H (None) /hpf Urine Mucus Rare H (None) /hpf Urine Yeast (Budding) Many H (None) /hpf Disposition Clinical Impression: Obstructed Sarkar catheter, Urinary tract infection Disposition: HOME SELF-CARE Condition: Good Instructions (If sedation given, give patient instructions): How to Change a Catheter Drainage Bag (DC) Prescriptions: Cephalexin [Keflex] 500 mg PO Q6HR 10 Days #40 cap Is patient prescribed a controlled substance at d/c from ED?: No Referrals: [facility],Clinic [Primary Care Provider] - 1-2 days
[2024-08-14 22:32] LABS: Amorphous Sediment,Urine Rare /hpf; Appearance,Urine Cloudy (Clear); Bacteria,Urine Many /hpf; Bilirubin,Urine Negative (Negative); Blood,Urine Large (Negative); Budding Yeast,Urine Many /hpf; Color,Urine Light Yellow; Glucose,Urine (UA) Negative (Negative); Ketones,Urine Negative (Negative); Leukocyte Esterase,Urine Large (Negative); Mucus,Urine Rare /hpf; Nitrite,Urine Negative (Negative); PH, Urine 6.5 (5.0-8.0); Protein,Urine 1+ (Negative); RBC,Urine 74 /hpf (0-5); Specific Gravity,Urine 1.022 (1.001-1.035); Squamous Epithelial Cell,Urine 1 /hpf (0-4); Urobilinogen,Urine <2.0 mg/dL (<2.0); WBC,Urine >182 /hpf (0-5)
[2024-08-14] MEDS: cefTRIAXone 1,000 MG VIAL (IM USE) IM STA (23:00)
[2024-08-14 23:23] VITALS: BP 140/81; PULSE 68; RESP 18; TEMP 97.8
== END 2024-08-14 23:31 | disposition home or self-care (01) ==
LOC: EC 20:44
DX: T83.091A Other mechanical complication of indwelling urethral catheter, initial encounter (principal); N39.0 Urinary tract infection, site not specified; Z86.73 Personal history of transient ischemic attack (TIA), and cerebral infarction without residual deficits
CPT/HCPCS: 99283; 51702; 51798; 81001; 87086; 96372; J0696

== ENCOUNTER 2024-08-19 19:07 | Emergency (ER) | payer OTHER ==
[2024-08-19 19:19] VITALS: RESP 18; TEMP 98.4
--- NOTE | 2024-08-19 19:52 | ED ---
General Adult HPI - General Source: patient, family Mode of arrival: ambulatory Limitations: no limitations <Bryson Mehta - Last Filed: 08/19/24 19:51> <Lidia Hay - Last Filed: 08/26/24 18:56> - General Chief complaint: Urogenital Stated complaint: Urogential Time Seen by Provider: 08/19/24 19:51 - History of Present Illness Initial comments: 79-year-old male presenting with chief complaint of occluded Sarkar catheter. Patient had a procedure performed on his prostate earlier today and left with a Sarkar catheter. He has not had any output from the Sarkar. No pain (Bryson Mehta) 79-year-old male presents to the emergency department for evaluation of a occluded Sarkar catheter. He states that he had a procedure on his prostate today and a Sarkar catheter was placed. He states that since then he has not had any output. He does report that he has some suprapubic fullness but otherwise no pain. (Lidia Hay) - Related Data Previous Rx's Medication Instructions Recorded Ciprofloxacin HCl [Cipro] 500 mg PO Q12HR #14 tablet 01/29/24 Artificial Tears-Hypromellose 1 drops LEFT EYE TID #10 ml 06/19/24 [Artificial Tear Drops] Erythromycin Ophth Oint [Romycin 1 applic LEFT EYE DAILY #1 gm 06/19/24 Ophth Oint] predniSONE [Deltasone] 80 mg PO DAILY #21 tab 06/19/24 valACYclovir HCL [Valtrex] 1,000 mg PO DAILY 7 Days #7 tablet 06/19/24 Ciprofloxacin HCl [Cipro] 500 mg PO Q12HR #14 tablet 06/23/24 Cephalexin [Keflex] 500 mg PO Q6HR 10 Days #40 cap 08/14/24 Allergies Allergy/AdvReac Type Severity Reaction Status Date / Time No Known Allergies Allergy Verified 08/19/24 19:19 Review of Systems ROS Other: All systems not noted in ROS Statement are negative. <Bryson Mehta - Last Filed: 08/19/24 19:51> ROS Other: All systems not noted in ROS Statement are negative. <Lidia Hay - Last Filed: 08/26/24 18:56> ROS Statement: Those systems with pertinent positive or pertinent negative responses have been documented in the HPI. Past Medical History Past Medical History: Heart Failure, CVA/TIA, Hyperlipidemia, Hypertension Past Surgical History: Heart Catheterization With Stent, Hernia Repair Past Psychological History: Anxiety Smoking Status: Never smoker Past Alcohol Use History: None Reported Past Drug Use History: None Reported <Bryson Mehta - Last Filed: 08/19/24 19:51> General Exam Limitations: no limitations <Bryson Mehta - Last Filed: 08/19/24 19:51> Limitations: no limitations General appearance: alert, in no apparent distress Head exam: Present: atraumatic, normocephalic, normal inspection Eye exam: Present: normal appearance, PERRL, EOMI. Absent: scleral icterus, conjunctival injection, periorbital swelling ENT exam: Present: normal exam, mucous membranes moist Respiratory exam: Present: normal lung sounds bilaterally. Absent: respiratory distress, wheezes, rales, rhonchi, stridor Cardiovascular Exam: Present: regular rate, normal rhythm, normal heart sounds. Absent: systolic murmur, diastolic murmur, rubs, gallop, clicks GI/Abdominal exam: Present: distended (Suprapubic distention), normal bowel sounds. Absent: tenderness, guarding, rebound, rigid Extremities exam: Present: normal inspection, full ROM, normal capillary refill. Absent: tenderness, pedal edema, joint swelling, calf tenderness Back exam: Present: normal inspection Neurological exam: Present: alert, oriented X3 Psychiatric exam: Present: normal affect, normal mood Skin exam: Present: warm, dry, intact, normal color. Absent: rash <Lidia Hay - Last Filed: 08/26/24 18:56> - General Exam Comments Initial Comments: Visual Physical Exam Vital signs reviewed General: Well-appearing, nontoxic, no acute distress. Head: Normocephalic, atraumatic Eyes: PERRLA, EOMI ENT: Airway patent Chest: Nonlabored breathing Skin: No visual rash, normal skin tone Neuro: Alert and oriented 3 Musculoskeletal: No gross abnormalities (Bryson Mehta) Course Vital Signs 08/19/24 08/20/24 19:17 00:00 Temperature 98.4 F Pulse Rate 95 105 H Respiratory 18 18 Rate Blood Pressure 145/78 154/87 O2 Sat by Pulse 95 96 Oximetry Medical Decision Making <Bryson Mehta - Last Filed: 08/19/24 19:51> <Lidia Hay - Last Filed: 08/26/24 18:56> - Medical Decision Making I performed the quick note portion of this visit, electronically signed Bryson Mehta PA-C (Bryson Mehta) Was pt. sent in by a medical professional or institution (MALVIN Olivares, RECREATIONAL FACILITIES MOTEL MANAGER, urgent care, hospital, or retirement...) When possible be specific @ -No Did you speak to anyone other than the patient for history (EMS, parent, family, police, friend...)? What history was obtained from this source @ -No Did you review nursing and triage notes (agree or disagree)? Why? @ -I reviewed and agree with nursing and triage notes Were old charts reviewed (outside hosp., previous admission, EMS record, old EKG, old radiological studies, urgent care reports/EKG's, retirement records)? Report findings @ -No old charts were reviewed Differential Diagnosis (chest pain, altered mental status, abdominal pain women, abdominal pain men, vaginal bleeding, weakness, fever, dyspnea, syncope, headache, dizziness, GI bleed, back pain, seizure, CVA, palpatations, mental health, musculoskeletal)? @ -Sarkar catheter obstruction, urinary tract infection, this is mild. EKG interpreted by me (3pts min.). @ -None X-rays interpreted by me (1pt min.). @ -None done CT interpreted by me (1pt min.). @ -None done U/S interpreted by me (1pt. min.). @ -None done What testing was considered but not performed or refused? (CT, X-rays, U/S, labs)? Why? @ -None What meds were considered but not given or refused? Why? @ -None Did you discuss the management of the patient with other professionals (professionals i.e. MALVIN Olivares, RECREATIONAL FACILITIES MOTEL MANAGER, lab, RT, psych nurse, social media coordinator, drapery cutter machine, teacher, light armored reconnaissance officer, case management assistant)? Give summary @ -No Was smoking cessation discussed for >3mins.? @ -No Was critical care preformed (if so, how long)? @ -No Were there social determinants of health that impacted care today? How? (Homelessness, low income, unemployed, alcoholism, drug addiction, transportation, low edu. Level, literacy, decrease access to med. care, senior living, rehab)? @ -No Was there de-escalation of care discussed even if they declined (Discuss DNR or withdrawal of care, Hospice)? DNR status @ -No What co-morbidities impacted this encounter? (DM, HTN, Smoking, COPD, CAD, Cancer, CVA, ARF, Chemo, Hep., AIDS, mental health diagnosis, sleep apnea, morbid obesity)? @ -None Was patient admitted / discharged? Hospital course, mention meds given and route, prescriptions, significant lab abnormalities, going to OR and other pertinent info. @ -Discharge. Patient presented to the emergency department for Sarkar catheter issues. The Sarkar catheter was replaced and the patient had significant output. There was gross hematuria and therefore it was flushed multiple times. The patient was eager to be discharged. Advised him to follow-up with his urologist. He is understanding agreeable plan. Patient stable at time of discharge. Case discussed with Dr. Baez.] Undiagnosed new problem with uncertain prognosis? @ -No Drug Therapy requiring intensive monitoring for toxicity (Heparin, Nitro, Insulin, Cardizem)? @ -No Were any procedures done? @ -No Diagnosis/symptom? @ -Sarkar catheter dysfunction Acute, or Chronic, or Acute on Chronic? @ -Acute Uncomplicated (without systemic symptoms) or Complicated (systemic symptoms)? @ -Uncomplicated Side effects of treatment? @ -No Exacerbation, Progression, or Severe Exacerbation? @ -No Poses a threat to life or bodily function? How? (Chest pain, [place], [place], pneumonia, PE, COPD, DKA, ARF, appy, cholecystitis, CVA, Diverticulitis, Homicidal, Suicidal, threat to staff... and all critical care pts) @ -No (Lidia Hay) Disposition <Bryson Mehta - Last Filed: 08/19/24 19:51> Is patient prescribed a controlled substance at d/c from ED?: No <Lidia Hay - Last Filed: 08/26/24 18:56> Clinical Impression: Sarkar catheter problem Disposition: HOME SELF-CARE Condition: Stable Additional Instructions: Please follow up with your urologist. Return to the emergency department for new or worsening symptoms. Referrals: [facility],Clinic [Primary Care Provider] - 1-2 days
[2024-08-20 00:40] VITALS: BP 154/87; PULSE 105
== END 2024-08-20 00:01 | disposition home or self-care (01) ==
LOC: EC 19:07
DX: Z46.6 Encounter for fitting and adjustment of urinary device (principal)
CPT/HCPCS: 51702; 51798; 99283

== ENCOUNTER 2024-08-30 03:21 | Emergency (ER) | payer OTHER ==
[2024-08-30 05:00] LABS: Basophils % (A) 1 %; Eosinophils # (A) 0.4 k/uL (0-0.7); Eosinophils % (A) 6 %; HCT 35.5 % (39.0-53.0); HGB 12.2 gm/dL (13.0-17.5); Lymphocytes # (A) 1.5 k/uL (1.0-4.8); Lymphocytes % (A) 25 %; MCH 31.9 pg (25.0-35.0); MCHC 34.3 g/dL (31.0-37.0); Mean Platelet Volume 7.7; Monocytes # (A) 0.5 k/uL (0-1.0); Monocytes % (A) 7 %; Neutrophils # (A) 3.7 k/uL (1.3-7.7); Neutrophils % (A) 60 %; Platelet Count 257 k/uL (150-450); RBC 3.82 m/uL (4.30-5.90); RDW 13.3 % (11.5-15.5); WBC 6.2 k/uL (3.8-10.6)
--- NOTE | 2024-08-30 05:29 | ED ---
General Adult HPI - General Chief complaint: Recheck/Abnormal Lab/Rx Stated complaint: Sarkar issues Time Seen by Provider: 08/30/24 03:45 Source: patient, RN notes reviewed, old records reviewed Mode of arrival: ambulatory - History of Present Illness Initial comments: Is a 79-year-old male with past medical history for chronic indwelling Sarkar catheter who presents emergency department with clogged Sarkar catheter. States it is not draining last 3 hours. Patient has been having bloody urine since procedure done within the last few weeks by his urologist, Dr. Gallardo. States the bleeding is a chronic issue. Has noticed no changes in it. Denies being on blood thinners. He is due to see his urologist later this morning but is concerned that the Sarkar catheter is blocked. Presents for further evaluation. Denies any fevers, chills, abdominal pain. - Related Data Previous Rx's Medication Instructions Recorded Ciprofloxacin HCl [Cipro] 500 mg PO Q12HR #14 tablet 01/29/24 Artificial Tears-Hypromellose 1 drops LEFT EYE TID #10 ml 06/19/24 [Artificial Tear Drops] Erythromycin Ophth Oint [Romycin 1 applic LEFT EYE DAILY #1 gm 06/19/24 Ophth Oint] predniSONE [Deltasone] 80 mg PO DAILY #21 tab 06/19/24 valACYclovir HCL [Valtrex] 1,000 mg PO DAILY 7 Days #7 tablet 06/19/24 Ciprofloxacin HCl [Cipro] 500 mg PO Q12HR #14 tablet 06/23/24 Cephalexin [Keflex] 500 mg PO Q6HR 10 Days #40 cap 08/14/24 Allergies Allergy/AdvReac Type Severity Reaction Status Date / Time No Known Allergies Allergy Verified 08/30/24 03:27 Review of Systems ROS Statement: Those systems with pertinent positive or pertinent negative responses have been documented in the HPI. Review of Systems: CONST: Denies fever EYES: Denies blurry vision ENT: Denies nasal congestion C/V: Denies Chest pain RESP: Denies shortness of breath GI: Denies abdominal pain : Denies dysuria SKIN: Denies rash. MSK: Denies joint pain. NEURO: Denies headache ROS Other: All systems not noted in ROS Statement are negative. Past Medical History Past Medical History: Heart Failure, CVA/TIA, Hyperlipidemia, Hypertension Past Surgical History: Heart Catheterization With Stent, Hernia Repair Past Psychological History: Anxiety Smoking Status: Never smoker Past Alcohol Use History: None Reported Past Drug Use History: None Reported General Exam - General Exam Comments Initial Comments: General: Appears in no acute distress. HEAD: Normal with no signs of head trauma. EYES: EOMI. ENT: Hearing grossly intact. RESPIRATORY: No respiratory distress. C/V: Regular rate and rhythm. ABD: Mild suprapubic tenderness to palpation. No obvious guarding, rebound t enderness. Relatively unremarkable exam. : Sarkar bag is empty. There is some residual bloody urine present. Patient does have bloody urine around the catheter in the urethra. EXT: No obvious deformity. SKIN: No rashes or lesions observed on exposed skin. NEURO: Alert and oriented. Course Vital Signs 08/30/24 08/30/24 03:24 05:27 Temperature 98.4 F 97.9 F Pulse Rate 91 84 Respiratory 18 19 Rate Blood Pressure 163/91 139/72 O2 Sat by Pulse 95 95 Oximetry Medical Decision Making - Medical Decision Making Was pt. sent in by a medical professional or institution (, PA, PARACHUTE/COMBATANT DIVER OFFICER, urgent care, hospital, or senior living...) When possible be specific @ -No Did you speak to anyone other than the patient for history (EMS, parent, family, police, friend...)? What history was obtained from this source @ -No Did you review nursing and triage notes (agree or disagree)? Why? @ -I reviewed and agree with nursing and triage notes Were old charts reviewed (outside hosp., previous admission, EMS record, old EKG, old radiological studies, urgent care reports/EKG's, senior living records)? Report findings @ -No old charts were reviewed Differential Diagnosis (chest pain, altered mental status, abdominal pain women, abdominal pain men, vaginal bleeding, weakness, fever, dyspnea, syncope, headache, dizziness, GI bleed, back pain, seizure, CVA, palpatations, mental health, musculoskeletal)? @ -Clogged Sarkar catheter, hematuria, Sarkar catheter malfunction. This list is not all inclusive EKG interpreted by me (3pts min.). @ -None done X-rays interpreted by me (1pt min.). @ -None done CT interpreted by me (1pt min.). @ -None done U/S interpreted by me (1pt. min.). @ -None done What testing was considered but not performed or refused? (CT, X-rays, U/S, labs)? Why? @ -None What meds were considered but not given or refused? Why? @ -None Did you discuss the management of the patient with other professionals (professionals i.e. , PA, PARACHUTE/COMBATANT DIVER OFFICER, lab, RT, psych nurse, rn social services, hydrocrane operator, teacher, police officer crime prevention, piano case and bench assembler)? Give summary @ -No Was smoking cessation discussed for >3mins.? @ -No Was critical care preformed (if so, how long)? @ -No Were there social determinants of health that impacted care today? How? (Homelessness, low income, unemployed, alcoholism, drug addiction, transportation, low edu. Level, literacy, decrease access to med. care, half-way, rehab)? @ -No Was there de-escalation of care discussed even if they declined (Discuss DNR or withdrawal of care, Hospice)? DNR status @ -No What co-morbidities impacted this encounter? (DM, HTN, Smoking, COPD, CAD, Cancer, CVA, ARF, Chemo, Hep., AIDS, mental health diagnosis, sleep apnea, morbid obesity)? @ -Chronic indwelling Sarkar catheter Was patient admitted / discharged? Hospital course, mention meds given and route, prescriptions, significant lab abnormalities, going to OR and other pertinent info. @ -Patient presents with clogged Sarkar catheter. Attempted irrigation unsuccessful. Sarkar catheter will be replaced. Patient had over 900 cc of urin e output. It is bloody. It was irrigated and it did lighten up. He has been having bloody urine since procedure within the last few weeks and follows up with his urologist later this morning. CBC was obtained just to check on the hemoglobin which was at an appropriate level. Recommended follow-up with Dr. Sargent this morning. He was in agreement this plan. Has no other acute complaints. Discharged home at this time. Vital signs within acceptable limits. I instructed the patient to follow up with their PCP in the next 1-3 days. I explained that the patient should return to the emergency department if they experience any worsening symptoms. Strict return precautions were discussed with the patient. The patient expressed understanding of these instructions. I answered all questions that the patient had. The patient was discharged home in good condition with their prescriptions and follow up information. Undiagnosed new problem with uncertain prognosis? @ -No Drug Therapy requiring intensive monitoring for toxicity (Heparin, Nitro, Insulin, Cardizem)? @ -No Were any procedures done? @ -No Diagnosis/symptom? @ -Hematuria, Sarkar catheter malfunction Acute, or Chronic, or Acute on Chronic? @ -Acute Uncomplicated (without systemic symptoms) or Complicated (systemic symptoms)? @ -Uncomplicated Side effects of treatment? @ -No Exacerbation, Progression, or Severe Exacerbation? @ -No Poses a threat to life or bodily function? How? (Chest pain, [place], [place], pneumonia, PE, COPD, DKA, ARF, appy, cholecystitis, CVA, Diverticulitis, Homicidal, Suicidal, threat to staff... and all critical care pts) @ -Unlikely at this time - Lab Data Result diagrams: 08/30/24 04:53 Lab Results 08/30/24 Range/Units 04:53 WBC 6.2 (3.8-10.6) k/uL RBC 3.82 L (4.30-5.90) m/uL Hgb 12.2 L (13.0-17.5) gm/dL Hct 35.5 L (39.0-53.0) % MCV 93.0 (80.0-100.0) fL MCH 31.9 (25.0-35.0) pg MCHC 34.3 (31.0-37.0) g/dL RDW 13.3 (11.5-15.5) % Plt Count 257 (150-450) k/uL MPV 7.7 Neutrophils % 60 % Lymphocytes % 25 % Monocytes % 7 % Eosinophils % 6 % Basophils % 1 % Neutrophils # 3.7 (1.3-7.7) k/uL Lymphocytes # 1.5 (1.0-4.8) k/uL Monocytes # 0.5 (0-1.0) k/uL Eosinophils # 0.4 (0-0.7) k/uL Basophils # 0.0 (0-0.2) k/uL Disposition Clinical Impression: Sarkar catheter problem, Hematuria Disposition: HOME SELF-CARE Condition: Good Additional Instructions: Follow-up with your urologist later this morning. Return if any worsening symptoms. Keep Sarkar catheter in place. Is patient prescribed a controlled substance at d/c from ED?: No Referrals: [facility],Clinic [Primary Care Provider] - 1-2 days Munir Gallardo MD [STAFF PHYSICIAN] - 1-2 days Time of Disposition: 05:29
[2024-08-30 05:35] VITALS: BP 139/72; PULSE 84; RESP 19; TEMP 97.9
== END 2024-08-30 05:57 | disposition home or self-care (01) ==
LOC: EC 03:21
DX: T83.091A Other mechanical complication of indwelling urethral catheter, initial encounter (principal); R31.9 Hematuria, unspecified; Z86.73 Personal history of transient ischemic attack (TIA), and cerebral infarction without residual deficits
CPT/HCPCS: 36415; 51702; 85025; 99283

== ENCOUNTER 2024-09-01 02:34 | Emergency (ER) | payer OTHER ==
--- NOTE | 2024-09-01 04:09 | ED ---
Male Urogenital HPI - General Chief complaint: Urogenital Stated complaint: Sarkar issues Time Seen by Provider: 09/01/24 02:44 Source: patient Mode of arrival: ambulatory Limitations: no limitations - History of Present Illness Initial comments: 79-year-old male presenting with chief complaint of clogged Sarkar catheter. Patient has a chronic indwelling Sarkar catheter since a prostate procedure. He follows with Dr. Gallardo. States that he last saw drainage about 3 hours ago. He is having suprapubic pain. States that he has had blood in his urine since his procedure. - Related Data Previous Rx's Medication Instructions Recorded Ciprofloxacin HCl [Cipro] 500 mg PO Q12HR #14 tablet 01/29/24 Artificial Tears-Hypromellose 1 drops LEFT EYE TID #10 ml 06/19/24 [Artificial Tear Drops] Erythromycin Ophth Oint [Romycin 1 applic LEFT EYE DAILY #1 gm 06/19/24 Ophth Oint] predniSONE [Deltasone] 80 mg PO DAILY #21 tab 06/19/24 valACYclovir HCL [Valtrex] 1,000 mg PO DAILY 7 Days #7 tablet 06/19/24 Ciprofloxacin HCl [Cipro] 500 mg PO Q12HR #14 tablet 06/23/24 Cephalexin [Keflex] 500 mg PO Q6HR 10 Days #40 cap 08/14/24 Allergies Allergy/AdvReac Type Severity Reaction Status Date / Time No Known Allergies Allergy Verified 09/01/24 02:38 Review of Systems ROS Statement: Those systems with pertinent positive or pertinent negative responses have been documented in the HPI. ROS Other: All systems not noted in ROS Statement are negative. Past Medical History Past Medical History: Heart Failure, CVA/TIA, Hyperlipidemia, Hypertension History of Any Multi-Drug Resistant Organisms: None Reported Past Surgical History: Heart Catheterization With Stent, Hernia Repair Past Psychological History: Anxiety Smoking Status: Never smoker Past Alcohol Use History: None Reported Past Drug Use History: None Reported General Exam Limitations: no limitations General appearance: alert, in no apparent distress Head exam: Present: atraumatic, normocephalic, normal inspection Eye exam: Present: normal appearance, EOMI Neck exam: Present: normal inspection. Absent: meningismus Respiratory exam: Absent: respiratory distress Neurological exam: Present: alert, oriented X3 Psychiatric exam: Present: normal affect, normal mood Skin exam: Present: warm, dry Course Vital Signs 09/01/24 09/01/24 02:36 04:43 Temperature 98.5 F 98.8 F Pulse Rate 102 H 110 H Respiratory 16 18 Rate Blood Pressure 172/86 154/80 O2 Sat by Pulse 99 98 Oximetry Medical Decision Making - Medical Decision Making Was pt. sent in by a medical professional or institution (MALVIN Olivares, BAG BUILDER, urgent care, hospital, or long-term...) When possible be specific @ -[No] Did you speak to anyone other than the patient for history (EMS, parent, family, police, friend...)? What history was obtained from this source @ -[No] Did you review nursing and triage notes (agree or disagree)? Why? @ -[I reviewed and agree with nursing and triage notes] Were old charts reviewed (outside hosp., previous admission, EMS record, old EKG, old radiological studies, urgent care reports/EKG's, long-term records)? Report findings @ -[No old charts were reviewed] Differential Diagnosis (chest pain, altered mental status, abdominal pain women, abdominal pain men, vaginal bleeding, weakness, fever, dyspnea, syncope, headache, dizziness, GI bleed, back pain, seizure, CVA, palpatations, mental health, musculoskeletal)? @ -Differential includes obstruction, decreased urine production, Sarkar catheter issue, this is not an all-inclusive list EKG interpreted by me (3pts min.). @ -[As above] X-rays interpreted by me (1pt min.). @ -[None done] CT interpreted by me (1pt min.). @ -[None done] U/S interpreted by me (1pt. min.). @ -[None done] What testing was considered but not performed or refused? (CT, X-rays, U/S, labs)? Why? @ -[None] What meds were considered but not given or refused? Why? @ -[None] Did you discuss the management of the patient with other professionals (professionals i.e. MALVIN Olivares, BAG BUILDER, lab, RT, psych nurse, social work administrator, abrading machine tender, teacher, commanding officer motorized squad, counseling case manager)? Give summary @ -[No] Was smoking cessation discussed for >3mins.? @ -[No] Was critical care preformed (if so, how long)? @ -[No] Were there social determinants of health that impacted care today? How? (Homelessness, low income, unemployed, alcoholism, drug addiction, transportation, low edu. Level, literacy, decrease access to med. care, snf, rehab)? @ -[No] Was there de-escalation of care discussed even if they declined (Discuss DNR or withdrawal of care, Hospice)? DNR status @ -[No] What co-morbidities impacted this encounter? (DM, HTN, Smoking, COPD, CAD, Canc er, CVA, ARF, Chemo, Hep., AIDS, mental health diagnosis, sleep apnea, morbid obesity)? @ -[None] Was patient admitted / discharged? Hospital course, mention meds given and route, prescriptions, significant lab abnormalities, going to OR and other pertinent info. @ -79-year-old male presenting with chief complaint of "my catheter will not drain". Last was draining about 3 hours ago. The catheter was replaced and patient had over a liter of output. Patient did have some blood clots flushed out as well. His symptoms have significantly improved. He is following up with his urologist Dr. Gallardo on Monday. Follow-up with PCP. Report back to ER with any new or worsening symptoms. Discussed return parameters and answered all questions. Patient conveyed verbal understanding and agreed to the plan. I discussed this case in detail with my attending Dr. Dockery Undiagnosed new problem with uncertain prognosis? @ -[No] Drug Therapy requiring intensive monitoring for toxicity (Heparin, Nitro, Insulin, Cardizem)? @ -[No] Were any procedures done? @ -[No] Diagnosis/symptom? @ -Sarkar catheter obstruction Acute, or Chronic, or Acute on Chronic? @ -Acute Uncomplicated (without systemic symptoms) or Complicated (systemic symptoms)? @ -Uncomplicated Side effects of treatment? @ -[No] Exacerbation, Progression, or Severe Exacerbation? @ -[No] Poses a threat to life or bodily function? How? (Chest pain, [place], [place], pneumonia, PE, COPD, DKA, ARF, appy, cholecystitis, CVA, Diverticulitis, Homicidal, Suicidal, threat to staff... and all critical care pts) @ -[No] Disposition Clinical Impression: Obstructed Sarkar catheter Disposition: HOME SELF-CARE Condition: Good Additional Instructions: Follow-up with your urologist. Report back to ER with any new or worsening symptoms. Is patient prescribed a controlled substance at d/c from ED?: No Referrals: [facility],Clinic [Primary Care Provider] - 1-2 days Munir Gallardo MD [STAFF PHYSICIAN] - 09/03/24 Time of Disposition: 04:40
[2024-09-01 04:53] VITALS: BP 154/80; PULSE 110; RESP 18; TEMP 98.8
== END 2024-09-01 04:52 | disposition home or self-care (01) ==
LOC: EC 02:34
DX: T83.091A Other mechanical complication of indwelling urethral catheter, initial encounter (principal)
CPT/HCPCS: 51702; 51798; 99284

== ENCOUNTER 2024-09-03 20:10 | Emergency (ER) | payer OTHER ==
[2024-09-03 20:37] VITALS: TEMP 98.1
--- NOTE | 2024-09-03 21:54 | ED ---
Male Urogenital HPI - General Chief complaint: Urogenital Stated complaint: Troubled urinating Time Seen by Provider: 09/03/24 20:46 Source: patient, RN notes reviewed Mode of arrival: ambulatory Limitations: no limitations - History of Present Illness Initial comments: This is an 79-year-old male who presents to the emergency department for problems with urinary retention. Patient had a chronic indwelling Sarkar catheter for over 6 months. He had an appointment to have it removed at 2 PM today. States that he was not told how long it can take for him to produce urine, and he was concerned that he did not go at all and started to develop some suprapubic discomfort. After he got to the emergency department he did seem to urinate a large amount, but is unsure if he was still retaining any urine. He is not currently on any antibiotics. - Related Data Previous Rx's Medication Instructions Recorded Ciprofloxacin HCl [Cipro] 500 mg PO Q12HR #14 tablet 01/29/24 Artificial Tears-Hypromellose 1 drops LEFT EYE TID #10 ml 06/19/24 [Artificial Tear Drops] Erythromycin Ophth Oint [Romycin 1 applic LEFT EYE DAILY #1 gm 06/19/24 Ophth Oint] predniSONE [Deltasone] 80 mg PO DAILY #21 tab 06/19/24 valACYclovir HCL [Valtrex] 1,000 mg PO DAILY 7 Days #7 tablet 06/19/24 Ciprofloxacin HCl [Cipro] 500 mg PO Q12HR #14 tablet 06/23/24 Cephalexin [Keflex] 500 mg PO Q6HR 10 Days #40 cap 08/14/24 Ciprofloxacin HCl [Cipro] 500 mg PO Q12HR 7 Days #14 tab 09/03/24 Allergies Allergy/AdvReac Type Severity Reaction Status Date / Time No Known Allergies Allergy Verified 09/03/24 20:37 Review of Systems ROS Statement: Those systems with pertinent positive or pertinent negative responses have been documented in the HPI. ROS Other: All systems not noted in ROS Statement are negative. Past Medical History Past Medical History: Heart Failure, CVA/TIA, Hyperlipidemia, Hypertension History of Any Multi-Drug Resistant Organisms: None Reported Past Surgical History: Heart Catheterization With Stent, Hernia Repair Past Psychological History: Anxiety Smoking Status: Never smoker Past Alcohol Use History: None Reported Past Drug Use History: None Reported General Exam Limitations: no limitations General appearance: alert, in no apparent distress Head exam: Present: atraumatic, normocephalic, normal inspection Respiratory exam: Present: normal lung sounds bilaterally. Absent: respiratory distress, wheezes, rales, rhonchi, stridor Cardiovascular Exam: Present: regular rate, normal rhythm, normal heart sounds. Absent: systolic murmur, diastolic murmur, rubs, gallop, clicks Neurological exam: Present: alert, oriented X3, CN II-XII intact Psychiatric exam: Present: normal affect, normal mood Skin exam: Present: warm, dry, intact, normal color. Absent: rash Course Vital Signs 09/03/24 09/03/24 20:33 22:24 Temperature 98.1 F Pulse Rate 104 H 100 Respiratory 20 18 Rate Blood Pressure 135/78 130/80 O2 Sat by Pulse 96 98 Oximetry Medical Decision Making - Medical Decision Making This is an 79 year old male who presents to the emergency department for urinary retention. Was pt. sent in by a medical professional or institution? @ -No Did you speak to anyone other than the patient for history? @ -No Did you review nursing and triage notes? @ -Yes, and I agree, it is accurate with regards to the patient's symptoms. Were old charts reviewed? @ -No Differential Diagnosis? @ -Blood clot, neurological problem, BPH, UTI, this is not meant to be an all- inclusive list. EKG interpreted by me (3pts min.)? @ -Not obtained X-rays interpreted by me (1pt min.)? @ -Not obtained CT interpreted by me (1pt min.)? @ -Not obtained U/S interpreted by me (1pt. min.)? @ -Not obtained What testing was considered but not performed? (CT, X-rays, U/S, labs)? Why? @ -None What meds were considered but not given? Why? @ -None Did you discuss the management of the patient with other professionals? @ -No Did you reconcile home meds? @ -No Was smoking cessation discussed for >3mins.? @ -No Was critical care preformed (if so, how long)? @ -No Were there social determinants of health that impacted care today? How? (Homelessness, low income, unemployed, alcoholism, drug addiction, transportation, low edu. Level, literacy, decrease access to med. care, residential, rehab)? @ -No Was there de-escalation of care discussed even if they declined? (Discuss DNR or withdrawal of care, Hospice)? @ -No What co-morbidities impacted this encounter? (DM, HTN, Smoking, COPD, CAD, Cancer, CVA, Hep., AIDS, mental health diagnosis, sleep apnea, morbid obesity)? @ -BPH Was patient admitted / discharged? @ -Discharged. When patient arrived he did produce a large amount of urine. However, bladder scan performed demonstrating 650 mL of urine was still present. Given that he was still retaining, patient was agreeable to reinserting the Sarkar catheter. This was reinserted and approximately 700 mL of urine was produced. Patient wanted to leave before the urinalysis results had returned. Advised that if it was positive antibiotics would be sent to his pharmacy. Urinalysis is potentially suggestive of infection and urine was sent for culture. Prescription for ciprofloxacin provided. Advised he follow back up with urology for further evaluation. Patient discharged home in stable condition. Case discussed with ED attending Dr. Street. Return precautions reviewed in depth, the patient is instructed to return to the emergency department with any new, worsening, or concerning symptoms. Patient verbalized understanding. Undiagnosed new problem with uncertain prognosis? @ -None Drug Therapy requiring intensive monitoring for toxicity (Heparin, Nitro, Insulin, Cardizem)? @ -None Were any procedures done? @ -None Diagnosis/symptom? @ -Urinary retention, UTI Acute, or Chronic, or Acute on Chronic? @ -Acute Uncomplicated (without systemic symptoms) or Complicated (systemic symptoms)? @ -Uncomplicated Side effects of treatment? @ -None Exacerbation, Progression, or Severe Exacerbation] @ -Not applicable Poses a threat to life or bodily function? @ -No - Lab Data Lab Results 09/03/24 Range/Units 22:24 Urine Color Light Yellow Urine Appearance Cloudy (Clear) Urine pH 5.5 (5.0-8.0) Ur Specific Radnor 1.010 (1.001-1.035) Urine Protein 1+ H (Negative) Urine Glucose (UA) Negative (Negative) Urine Ketones Negative (Negative) Urine Blood Large H (Negative) Urine Nitrite Negative (Negative) Urine Bilirubin Negative (Negative) Urine Urobilinogen <2.0 (<2.0) mg/dL Ur Leukocyte Esterase Large H (Negative) Urine RBC >182 H (0-5) /hpf Urine WBC 42 H (0-5) /hpf Urine WBC Clumps Rare H (None) /hpf Ur Squamous Epith Cells <1 (0-4) /hpf Urine Bacteria Occasional H (None) /hpf Urine Mucus Rare H (None) /hpf Urine Yeast (Budding) Rare H (None) /hpf Disposition Clinical Impression: Urinary retention, UTI (urinary tract infection) Disposition: HOME SELF-CARE Condition: Good Instructions (If sedation given, give patient instructions): Urinary Retention in Men (ED), Sarkar Catheter Placement and Care (ED), How to Change a Catheter Drainage Bag (DC) Additional Instructions: Return to the emergency department with any new, worsening, or concerning symptoms. Follow up with urology. Prescriptions: Ciprofloxacin HCl [Cipro] 500 mg PO Q12HR 7 Days #14 tab Is patient prescribed a controlled substance at d/c from ED?: No Referrals: [facility],Clinic [Primary Care Provider] - 1-2 days Munir Gallardo MD [STAFF PHYSICIAN] - 1-2 days Time of Disposition: 21:54
[2024-09-03 22:25] VITALS: BP 130/80; PULSE 100; RESP 18
[2024-09-03 23:33] LABS: Appearance,Urine Cloudy (Clear); Bacteria,Urine Occasional /hpf; Bilirubin,Urine Negative (Negative); Blood,Urine Large (Negative); Budding Yeast,Urine Rare /hpf; Color,Urine Light Yellow; Glucose,Urine (UA) Negative (Negative); Ketones,Urine Negative (Negative); Leukocyte Esterase,Urine Large (Negative); Mucus,Urine Rare /hpf; Nitrite,Urine Negative (Negative); PH, Urine 5.5 (5.0-8.0); Protein,Urine 1+ (Negative); RBC,Urine >182 /hpf (0-5); Squamous Epithelial Cell,Urine <1 /hpf (0-4); Urobilinogen,Urine <2.0 mg/dL (<2.0); WBC,Urine 42 /hpf (0-5)
== END 2024-09-03 22:30 | disposition home or self-care (01) ==
LOC: EC 20:10
DX: N39.0 Urinary tract infection, site not specified (principal); N40.0 Benign prostatic hyperplasia without lower urinary tract symptoms
CPT/HCPCS: 51702; 51798; 81001; 87086; 99283